=== PATIENT | male | born 1950 | race Caucasian/White ===

== ENCOUNTER 2024-09-26 17:11 | Inpatient (IN) | payer OTHER ==
[~2024-09-26] VITALS: Ht 180.3 cm; Wt 84.2 kg
[2024-09-26 18:38] LABS: pH Blood Venous 7.12 (7.34-7.37)
[2024-09-26 18:39] LABS: Base Excess Venous -18.4 mmol/L; Bicarbonate Venous 11.3 mmol/L (24.0-30.0); PCO2 Venous 33.9 mmHg (38-42)
[2024-09-26 18:41] LABS: BASOPHILS ABSOLUTE AUTO 0.03 K/mm3 (0.00-0.23); BASOPHILS PERCENT AUTO 0 % (0-2); EOSINOPHILS ABSOLUTE AUTO 0.17 K/mm3 (0.00-0.68); EOSINOPHILS PERCENT AUTO 1 % (0-6); Hematocrit 31.1 % (37.0-53.0); Hemoglobin 9.4 g/dL (13.5-17.5); IMMATURE GRAN ABSOLUTE AUTO 0.31 K/mm3 (0.00-0.10); IMMATURE GRAN PERCENT AUTO 2 % (0-1); LYMPHOCYTES ABSOLUTE AUTO 0.93 K/mm3 (0.84-5.20); LYMPHOCYTES PERCENT AUTO 4 % (21-46); MONOCYTES PERCENT AUTO 7 % (4-13); Mean Corpuscular HGB 22.4 pg (26.0-34.0); Mean Corpuscular HGB Conc 30.2 g/dL (31.5-36.5); Mean Corpuscular Volume 74 fL (80-100); Mean Platelet Volume 10.3 fL (9.1-12.4); NEUTROPHILS ABSOLUTE AUTO 18.31 K/mm3 (1.96-9.15); NEUTROPHILS PERCENT AUTO 87 % (41-73); Platelet Count 268 K/mm3 (150-400); RDW Coefficient Variation 20.4 % (11.7-14.2); RDW Standard Deviation 54.8 fL (35.1-46.3); White Blood Cell Count 21.15 K/mm3 (4.00-11.30)
[2024-09-26 18:55] LABS: Calcium, Ionized (POC) 1.07 mmol/L (1.10-1.46); Chloride (POC) 107 mmol/L (98-108); Creatinine (POC) 8.6 mg/dL (0.8-1.3); Glucose (ISTAT POC) 142 mg/dL (70-99); Hemoglobin (POC) 10.2 g/dL (13.5-17.5); Potassium (POC) 5.4 mmol/L (3.5-5.5); Sodium (POC) 135 mmol/L (135-148); Total CO2 (POC) 15 mmol/L (21-32)
[2024-09-26 19:05] LABS: CORONAVIRUS COVID-19 AG Negative (NEGATIVE); INFLUENZA A AG Negative (NEGATIVE); INFLUENZA B AG Negative (NEGATIVE)
[2024-09-26] MEDS ORDERED: Lactated Ringer's 1,000 ML IV ONE ×2 (19:20→22:30)
[2024-09-26] MEDS ORDERED: Ondansetron HCl 2 MG / ML 2ML Vial IV ONE (19:20)
[2024-09-26 19:36] LABS: Albumin, Blood 2.5 g/dL (3.4-5.0); Albumin/Globulin Ratio 0.6 (0.8-1.8); Bilirubin, Total 0.6 mg/dL (0.1-1.0); Bun/Creatinine Ratio 14.1 (12.0-20.0); Calcium, Blood 8.2 mg/dL (8.5-10.1); Creatinine, Blood 8.25 mg/dL (0.60-1.20); Globulin, Blood 4.5 g/dL (2.2-4.0); Potassium, Blood 5.7 mmol/L (3.5-5.5)
[2024-09-26] MEDS ORDERED: Insulin Regular 100 Unit/ML 1ML Dose IV ONE (20:50)
[2024-09-26] MEDS ORDERED: Dextrose 50% 50 ML Syringe IV ONE (20:50)
[2024-09-26] MEDS ORDERED: Albuterol 2.5 MG/3 ML VIAL INH SCH (20:50)
[2024-09-26] MEDS ORDERED: Sodium Bicarb 8.4% 1 MEQ/ML 50 ML Vial IV ONE (20:50)
[2024-09-26] MEDS ORDERED: Dextrose 50% 50 ML Vial IV ONE (20:55)
[2024-09-26] MEDS ORDERED: FLU VACC TS2024-25(6MOS UP)/PF 45 MCG/0.5 ML SYRINGE IM ONE (23:00)
[2024-09-26] MEDS ORDERED: Ondansetron HCl 2 MG / ML 2ML Vial IV PRN (23:00)
[2024-09-26] MEDS ORDERED: CALCIUM GLUC IN NACL, ISO-OSM 50 ML IV ONE (23:10)
[2024-09-26] MEDS ORDERED: Sodium Bicarb 8.4% Inj 100 MEQ in Sodium Chloride 0.45% 1,000 ML IV SCH (23:10)
[2024-09-27] VITALS (24 sets, daily range): BP systolic 78–126; BP diastolic 44–79
[2024-09-27] MEDS ORDERED: CefTRIAXone Sodium 1,000 MG in NS 100 ML IV SCH (01:06)
[2024-09-27] MEDS ORDERED: Albumin (Human) 25gm/100ml 100 ML IV ONE (01:10)
[2024-09-27] MEDS ORDERED: NITR.4SL SL (01:50)
[2024-09-27] MEDS ORDERED: Cefadroxil500 MG (01:51)
[2024-09-27] MEDS ORDERED: Lisinopril2.5 MG (01:52)
[2024-09-27] MEDS ORDERED: TAMS.4ER PO (01:53)
[2024-09-27] MEDS ORDERED: FINA5 PO (01:53)
[2024-09-27] MEDS ORDERED: ALBU2.5V5 (01:54)
[2024-09-27] MEDS ORDERED: CLOP75 PO (01:55)
[2024-09-27] MEDS ORDERED: ATOR80 PO (01:55)
[2024-09-27] MEDS ORDERED: METF500 PO (01:56)
[2024-09-27] MEDS ORDERED: METO25ER PO (01:56)
[2024-09-27 03:18] LABS: Bun/Creatinine Ratio 15.3 (12.0-20.0); Calcium, Blood 8.1 mg/dL (8.5-10.1); Creatinine, Blood 8.19 mg/dL (0.60-1.20)
--- NOTE | 2024-09-27 06:28 | NUR ---
SHIFT SUMMARY PT FELL ASLEEP SOON THE ADMISSION ASSESSMENT WAS COMPLETED.PT STILL SLEEPING AT THIS TIME BUT EASILY AROUSABLE.PT HAS NOT URINATED,STATES THAT HE DOES NOT FEEL THE URGE TO URINATE,DENIES SUPRAPUBIC PAIN.PT REPORTS THAT HE USUALLY KNOWS WHEN HE NEEDS TO URINATE AND STRAIGHT CATHS HIMSELF.PT STATES THAT HE WILL LET STAFF KNOW WHEN HE IS READY FOR STRAIGHT CATHERAIZATION.CONSULT TO UROLOGIST CALLED THIS MORNING.PT NPO ORDERED.PT DENIES PAIN,DENIES NEEDS.CALL LIGHT AND PT'S ITEMS WITHIN REACH.WILL REPORT TO DAYSHIFT NURSE.
[2024-09-27] MEDS ORDERED: SODIUM BICARB IV ONE (07:40)
[2024-09-27] MEDS ORDERED: Sodium Zirconium Cyclosilicate 10 GM Packet PO SCH ×2 (07:52→16:30)
[2024-09-27] MEDS ORDERED: Sodium Bicarb 8.4% Inj 150 MEQ in Dextrose 5% 1,000 ML IV SCH (08:00)
[2024-09-27 08:45] LABS: Base Excess Venous -15.8 mmol/L; PCO2 Venous 31.6 mmHg (38-42)
[2024-09-27 08:58] LABS: BASOPHILS ABSOLUTE AUTO 0.02 K/mm3 (0.00-0.23); BASOPHILS PERCENT AUTO 0 % (0-2); EOSINOPHILS ABSOLUTE AUTO 0.01 K/mm3 (0.00-0.68); EOSINOPHILS PERCENT AUTO 0 % (0-6); Hematocrit 27.2 % (37.0-53.0); Hemoglobin 8.4 g/dL (13.5-17.5); IMMATURE GRAN ABSOLUTE AUTO 0.23 K/mm3 (0.00-0.10); IMMATURE GRAN PERCENT AUTO 1 % (0-1); LYMPHOCYTES PERCENT AUTO 3 % (21-46); MONOCYTES ABSOLUTE AUTO 1.27 K/mm3 (0.16-1.47); MONOCYTES PERCENT AUTO 7 % (4-13); Mean Corpuscular HGB 22.4 pg (26.0-34.0); Mean Corpuscular HGB Conc 30.9 g/dL (31.5-36.5); Mean Corpuscular Volume 73 fL (80-100); Mean Platelet Volume 10.2 fL (9.1-12.4); NEUTROPHILS PERCENT AUTO 88 % (41-73); Platelet Count 251 K/mm3 (150-400); RDW Coefficient Variation 20.4 % (11.7-14.2); RDW Standard Deviation 54.7 fL (35.1-46.3); Red Blood Cell Count 3.75 M/mm3 (4.30-5.90); White Blood Cell Count 18.23 K/mm3 (4.00-11.30)
[2024-09-27 09:25] LABS: Albumin, Blood 2.3 g/dL (3.4-5.0); Albumin/Globulin Ratio 0.7 (0.8-1.8); Bilirubin, Total 0.5 mg/dL (0.1-1.0); Bun/Creatinine Ratio 14.8 (12.0-20.0); Calcium, Blood 7.6 mg/dL (8.5-10.1); Globulin, Blood 3.5 g/dL (2.2-4.0); Potassium, Blood 5.5 mmol/L (3.5-5.5); Total Protein, Blood 5.8 g/dL (6.4-8.2)
[2024-09-27 09:26] LABS: Creatinine, Blood 8.24 mg/dL (0.60-1.20)
[2024-09-27] MEDS ORDERED: Heparin Sodium,Porcine 5,000 UNIT/0.5 ML SDV SC SCH ×2 (10:43→16:00)
[2024-09-27] MEDS ORDERED: Enoxaparin 30 MG/0.3 ML SYR SC SCH (11:00)
[2024-09-27] MEDS ORDERED: Nicotine 21 MG PATCH TOP SCH (11:15)
[2024-09-27] MEDS ORDERED: Lactated Ringer's 1,000 ML IV SCH (12:00)
[2024-09-27 13:54] LABS: Bicarbonate Venous 14.9 mmol/L (24.0-30.0); PCO2 Venous 33.2 mmHg (38-42); pH Blood Venous 7.24 (7.34-7.37)
--- NOTE | 2024-09-27 14:30 | NUR ---
MORNING SUMMARY THE PT IS A&OX4, 1P SBA, AND MAKES THEIR NEEDS KNOWN. THE PT'S HAS BEEN AT BEDSIDE AND UPDATED ON CARE. THE PT'S CREATININE CONTINUES TO INCREASE. DR. MASSEY HAS BEEN IN CONTACT WITH DR. FRANK, COP WINDER. DR. LAGUNAS CONSULTED AND PLACED A TRIALYSIS PORT IN RIGHT IJ. DR. LAGUNAS CONFIRMED SITE WITH STAT 1V CXR. OKAY'S TOO USE. PT IS CURRENTLY AT DIALYSIS AND THE PT'S ACCOMPANIED HIM. THE PT HAS A SMALL LOOSE BM THIS SHIFT AND A SAMPLE WAS SENT TO LAB FOR GI PANEL. THE PT HAS NOT BEEN ABLE TO VOID THIS SHIFT. WHEN BLADDER SCANNED HE HAD 32 CC'S IN HIS BLADDER. DISCUSSED W/ DR. MASSEY. AT BASELINE THE PT STRAIGHT CATH'S HIMSELF AND KNOW WHEN HE NEEDS TO. HE HAS BEEN ADVANCED TO A CLEAR LIQUID DIET AND IS TOLERATING IT WELL. SEE NOTES FOR ANY UPDATES.
[2024-09-27] MEDS ORDERED: Albuterol 2.5 MG/3 ML VIAL INH PRN (15:50)
--- NOTE | 2024-09-27 15:59 | NUR ---
PT IN DIALYSIS. THIS EXTRACTOR OPERATOR HELPER RECIEVED A CALL FROM LORY NOGUEIRA RN TALKING ABOUT NEPHROSTOMY PLACEMENT. THIS RN WAS UNAWARE AND WENT TO TALK TO THE PT IN DIALYSIS. WHEN IN THE ROOM DR. ALBA CAME IN AND DISCUSSED THE NEED FOR A NEPHROSTOMY TUBE D/T KIDNEY STONES. CONSENT WAS OBTAINED FROM THE PT AND HIS . THEY WILL GRAB THE PT FROM DIALYSIS FOR PRROCEDURE.
[2024-09-27] MEDS ORDERED: NS 250 ML IV ONE (16:18)
[2024-09-27] MEDS ORDERED: Midazolam HCl 1MG / ML 2ML Vial ONE (16:22)
[2024-09-27] MEDS ORDERED: NS 1,000 ML IV ONE (16:23)
[2024-09-27] MEDS ORDERED: FentaNYL Citrate 50 MCG/ML 2 ML Injection ONE (16:23)
--- NOTE | 2024-09-27 17:35 | NUR ---
PT GOT BACK POST L. NEPHROSTOMY TUBE PLACEMENT. THE PT IS A&OX2-3, HE THOUGHT THE YEAR WAS 1984 BUT KNEW IT WAS SEPTEMBER AND THAT JONAS WAS IN OFFICE. HE DOES C/O SOME VISUAL HALLUCINATIONS. HE IS SAYING HE SEEINS RED WRITING IN HIS VISION. DR. MASSEY AND DR. CALLES AWARE. DR. CALLES DOES WANT THE 2100 ANTIBIOTICS GIVEN NOW. VS STABLE. RED PURULENT DRAINAGE NOTED IN DRAINGAGE BAG FROM NEPHROSTOMY.
--- NOTE | 2024-09-27 18:26 | NUR ---
PT IS NO LONGER HALLUCINATING. HE IS PALE IN COLOR, SHIVERING, AND C/O SOB. THE RN CALLED DR. MARINO AND SHE D/C'D THE FLUIDS. SHE IS GOING TO ADD MORE ANTIBIOTICS. ALSO, DR. MARINO STATED IF THE PT WORSENS TO DO A 1V CHEST XRAY, AND IF OXYGEN BECOMES REQUIRED TO TRY TO BIPAP IN CASE OF FLUID OVER LOAD. SEE NOTES FOR UPDATES.
[2024-09-27 18:38] LABS: Base Excess Venous -7.9 mmol/L; Bicarbonate Venous 18.3 mmol/L (24.0-30.0); pH Blood Venous 7.31 (7.34-7.37)
[2024-09-27] MEDS ORDERED: Acetaminophen 325 MG TABLET PO PRN (18:40)
[2024-09-27 18:46] LABS: Hematocrit 28.6 % (37.0-53.0); Hemoglobin 8.9 g/dL (13.5-17.5); Mean Corpuscular HGB 22.1 pg (26.0-34.0); Mean Corpuscular HGB Conc 31.1 g/dL (31.5-36.5); Mean Corpuscular Volume 71 fL (80-100); Mean Platelet Volume 10.1 fL (9.1-12.4); Platelet Count 249 K/mm3 (150-400); RDW Standard Deviation 51.7 fL (35.1-46.3); Red Blood Cell Count 4.02 M/mm3 (4.30-5.90); White Blood Cell Count 4.41 K/mm3 (4.00-11.30)
[2024-09-27] MEDS ORDERED: Meropenem 500 MG in NS 100 ML IV SCH (19:00)
[2024-09-27 19:09] LABS: BAND PERCENT MAN 9 % (0-8); BASOPHILS ABSOLUTE MAN 0.04 K/mm3 (0.00-0.23); BASOPHILS PERCENT MAN 1 % (0-2); EOSINOPHILS ABSOLUTE MAN 0.04 K/mm3 (0.00-0.68); EOSINOPHILS PERCENT MAN 1 % (0-6); LYMPHOCYTES ABSOLUTE MAN 0.57 K/mm3 (0.84-5.20); LYMPHOCYTES PERCENT MAN 13 % (21-46); MONOCYTES ABSOLUTE MAN 0.04 K/mm3 (0.16-1.47); MONOCYTES PERCENT MAN 1 % (4-13); MYELOCYTE ABSOLUTE MAN 0.04 K/mm3 (0.00-0.00); MYELOCYTE PERCENT MAN 1 % (0-0); NEUTROPHILS ABSOLUTE MAN 3.66 K/mm3 (1.96-9.15); SEG NEUTROPHILS PERCENT MAN 74 % (41-73); TOTAL CELLS COUNTED 100
[2024-09-27 19:11] LABS: Albumin, Blood 2.5 g/dL (3.4-5.0); Anion Gap 17 mmol/L (3-11); Blood Urea Nitrogen 88 mg/dL (8-24); Bun/Creatinine Ratio 14.9 (12.0-20.0); CO2, Blood 22 mmol/L (21-32); Calcium, Blood 7.5 mg/dL (8.5-10.1); Chloride, Blood 102 mmol/L (98-108); Glomerular Filtration Rate 9 (60-); Glucose, Blood 98 mg/dL (70-99); Phosphorus, Blood 5.4 mg/dL (2.5-4.9); Potassium, Blood 4.1 mmol/L (3.5-5.5); Sodium, Blood 137 mmol/L (136-145)
[2024-09-27 21:13] LABS: Base Excess Venous -5.2 mmol/L; Bicarbonate Venous 20.6 mmol/L (24.0-30.0); PCO2 Venous 31.3 mmHg (38-42); pH Blood Venous 7.41 (7.34-7.37)
--- NOTE | 2024-09-27 21:40 | NUR ---
ASSUMPTION OF CARE ASSUMED PT'S CARE AT 1900,[facility]EDSIDE [facility].PT LETHARGIC,OPENS EYES TO VOICE.PLAN OF CARE REVIEWED.PT'S OXYGEN SATURATION 87% ON RA,PLACED ON 2L VIA NASAL CANNULA.RESPIRATORY THERAPIST CAME TO THE ROOM, EVALUATED PT AND OFFERED TO PLACE PT ON A BIPAP BUT PT REFUSED.RT INCREASED THE OXYGEN FLOW RATE TO 3L VIA NC.OXYGEN SATURATION 94%.VSS,PT DENIES PAIN,DENIES SOB,DENIES NEEDS.NEPHROSTOMY TUBE IN PLACE DRAINING MODERATE AMOUNT OF SEROSANGUINEOUS DRAINAGE.CALL LIGHT AND PTS ITEMS WITHIN REACH.WILL CONTINUE TO MONITOR.
--- NOTE | 2024-09-27 22:48 | NUR ---
CARE NOTE RESIDENT NOTIFIED AT 2211 OF PTS BP DROPPING DOWN TO 78/44 (56).PT IS MORE ALERT THAN HE WAS AT THE BEGINNING OF THE SHIFT.MD STATES THAT HE WILL COME TO SEE PT AT BEDSIDE.
[2024-09-27] MEDS ORDERED: Midodrine 2.5 MG Tab PO SCH (23:50)
[2024-09-28] VITALS (27 sets, daily range): BP systolic 80–122; BP diastolic 45–85
[2024-09-28] MEDS ORDERED: Heparin Sodium 5000 Units/ML 1ML MDV SC SCH (00:31)
[2024-09-28 04:57] LABS: BASOPHILS ABSOLUTE AUTO 0.02 K/mm3 (0.00-0.23); BASOPHILS PERCENT AUTO 0 % (0-2); EOSINOPHILS ABSOLUTE AUTO 0.02 K/mm3 (0.00-0.68); EOSINOPHILS PERCENT AUTO 0 % (0-6); Hematocrit 24.1 % (37.0-53.0); Hemoglobin 7.8 g/dL (13.5-17.5); IMMATURE GRAN ABSOLUTE AUTO 0.13 K/mm3 (0.00-0.10); IMMATURE GRAN PERCENT AUTO 1 % (0-1); LYMPHOCYTES PERCENT AUTO 4 % (21-46); MONOCYTES ABSOLUTE AUTO 1.02 K/mm3 (0.16-1.47); MONOCYTES PERCENT AUTO 6 % (4-13); Mean Corpuscular HGB 22.2 pg (26.0-34.0); Mean Corpuscular HGB Conc 32.4 g/dL (31.5-36.5); Mean Corpuscular Volume 69 fL (80-100); NEUTROPHILS ABSOLUTE AUTO 15.03 K/mm3 (1.96-9.15); NEUTROPHILS PERCENT AUTO 89 % (41-73); Platelet Count 211 K/mm3 (150-400); RDW Coefficient Variation 19.5 % (11.7-14.2); RDW Standard Deviation 48.9 fL (35.1-46.3); Red Blood Cell Count 3.52 M/mm3 (4.30-5.90); White Blood Cell Count 16.82 K/mm3 (4.00-11.30)
[2024-09-28 05:23] LABS: Albumin/Globulin Ratio 0.6 (0.8-1.8); Bilirubin, Total 0.6 mg/dL (0.1-1.0); Bun/Creatinine Ratio 14.8 (12.0-20.0); Calcium, Blood 7.2 mg/dL (8.5-10.1); Creatinine, Blood 6.94 mg/dL (0.60-1.20); Globulin, Blood 3.3 g/dL (2.2-4.0); Magnesium, Blood 2.1 mg/dL (1.6-2.4); Potassium, Blood 4.3 mmol/L (3.5-5.5); Total Protein, Blood 5.3 g/dL (6.4-8.2)
--- NOTE | 2024-09-28 06:04 | NUR ---
SHIFT SUMMARY PT AWAKE SITTING AT THE EDGE OF THE BED.PT HAD EPISODES OF LOW BP'S OVERNIGHT (SEE CARE NOTES).BP IMPROVED WITH MIDRODINE 2.5MG PO.PT'S MENTATION IMPROVED THROUGHOUT THE NIGHT.HE ALERT AND ORIENTATED X4 THIS MORNING.PT REQUIRED 2-4L OF OXYGEN VIA NASAL CANNULA WHILE SLEEPING.OXYGEN SATURATION DROPPED DOWN TO 86% ON RA WHILE PT WAS SLEEPING.OXYGEN SATURATION >91% ON RA WHILE PT AWAKE.PT SNORES IN WHILE SLEEPING.NEPHROSTOMY TUBE IN PLACE AND PATENT,DRAINING MODERATE AMOUNT OF BLOOD TINGED DRAINAGE.PT DENIES PAIN,DENIES NEEDS.CALL LIGHT AND PT'S ITEMS WITHIN REACH.WILL CONTINUE TO MONITOR.
[2024-09-28] MEDS ORDERED: Albumin (Human) 25gm/100ml 100 ML IV PRN (08:25)
[2024-09-28] MEDS ORDERED: Atorvastatin 40 MG Tab PO SCH (09:00)
[2024-09-28] MEDS ORDERED: Finasteride 5 MG Tab PO SCH (09:00)
[2024-09-28] MEDS ORDERED: Metoprolol Succinate 25 MG TABCR PO SCH (09:00)
[2024-09-28] MEDS ORDERED: Clopidogrel Bisulfate 75 MG Tab PO SCH (09:00)
[2024-09-28] MEDS ORDERED: Tamsulosin HCl 0.4 MG Cap PO SCH (09:00)
[2024-09-28] MEDS ORDERED: Midodrine 2.5 MG Tab PO SCH (09:00)
[2024-09-28] MEDS ORDERED: Empagliflozin 10 MG TAB PO SCH (09:00)
[2024-09-28] MEDS ORDERED: Sodium Zirconium Cyclosilicate 10 GM Packet PO ONE (14:15)
--- NOTE | 2024-09-28 17:38 | NUR ---
SHIFT SUMMARY THE PT IS A&OX3-4, CALLS APPROPRAITELY, AND MAKES HIS NEEDS KNOWN. THE PT CAN BE FORGETFUL, BUT DOES CALL APPROPRAITELY. ABOUT 1600 THE PT REPORTED SEEING RED WRITING IN HIS VISION, WHICH THE PT PRESENT WITH 2/. HE STATED THAT IT COMES AND GOES. PERRLA. THE PT IS A 1P SBA W/ FWW FOR TX. HE WAS STILL UNABLE TO VOID BUT HAD 70CC OR RED PURULENT DRAINAGE FROM HIS LEFT NEPHROSTOMY. INSERTION SITE REMAIN INTACT. BM THIS SHIFT BUT A STOOL SAMPLE WAS NOT OBTAINED. PT HAD DIALYSIS THIS MORNING. NO ACUTE EVENTS. SEE NOTES FOR UPDATES.
[2024-09-28] MEDS ORDERED: Meropenem 1,000 MG in NS 100 ML IV SCH (21:00)
[2024-09-28 22:01] LABS: Campylobacter Sp Not Detected (NOT DETECT)
[2024-09-28 22:02] LABS: Adenovirus F 40/41 Not Detected (NOT DETECT); Astrovirus Not Detected (NOT DETECT); Cryptosporidium Not Detected (NOT DETECT); Cyclospora Cayetanensis Not Detected (NOT DETECT); E. Coli O157 Not Detected (NOT DETECT); Entamoeba Histolytica Not Detected (NOT DETECT); Enteroaggregative E. coli-EAEC Not Detected (NOT DETECT); Enteropathogenic E. coli-EPEC Not Detected (NOT DETECT); Enterotoxigenic E. coli-ETEC Not Detected (NOT DETECT); Giardia Lamblia Not Detected (NOT DETECT); Norovirus GI/GII Not Detected (NOT DETECT); Plesiomonas Shigelloides Not Detected (NOT DETECT); Rotavirus A Not Detected (NOT DETECT); Salmonella Sp Not Detected (NOT DETECT); Sapovirus Not Detected (NOT DETECT); Shiga Toxin-prod E. coli-STEC Not Detected (NOT DETECT); Shigella/Enteroin E. coli-EIEC Not Detected (NOT DETECT); Vibrio Cholerae Not Detected (NOT DETECT); Vibrio Sp Not Detected (NOT DETECT); Yersinia Enterocolitica Not Detected (NOT DETECT)
[2024-09-29] VITALS (7 sets, daily range): BP systolic 96–136; BP diastolic 62–76
[2024-09-29 04:41] LABS: BASOPHILS ABSOLUTE AUTO 0.02 K/mm3 (0.00-0.23); BASOPHILS PERCENT AUTO 0 % (0-2); EOSINOPHILS ABSOLUTE AUTO 0.03 K/mm3 (0.00-0.68); EOSINOPHILS PERCENT AUTO 0 % (0-6); Hematocrit 23.5 % (37.0-53.0); Hemoglobin 7.6 g/dL (13.5-17.5); IMMATURE GRAN ABSOLUTE AUTO 0.11 K/mm3 (0.00-0.10); IMMATURE GRAN PERCENT AUTO 1 % (0-1); LYMPHOCYTES ABSOLUTE AUTO 0.49 K/mm3 (0.84-5.20); LYMPHOCYTES PERCENT AUTO 5 % (21-46); MONOCYTES ABSOLUTE AUTO 1.05 K/mm3 (0.16-1.47); MONOCYTES PERCENT AUTO 11 % (4-13); Mean Corpuscular HGB 22.1 pg (26.0-34.0); Mean Corpuscular HGB Conc 32.3 g/dL (31.5-36.5); Mean Corpuscular Volume 68 fL (80-100); NEUTROPHILS ABSOLUTE AUTO 7.86 K/mm3 (1.96-9.15); NEUTROPHILS PERCENT AUTO 82 % (41-73); Platelet Count 168 K/mm3 (150-400); RDW Coefficient Variation 18.9 % (11.7-14.2); RDW Standard Deviation 46.7 fL (35.1-46.3); Red Blood Cell Count 3.44 M/mm3 (4.30-5.90); White Blood Cell Count 9.56 K/mm3 (4.00-11.30)
[2024-09-29 04:43] LABS: Mean Platelet Volume 10.9 fL (9.1-12.4)
--- NOTE | 2024-09-29 04:45 | NUR ---
NOC SHIFT SUMMARY NO ACUTE EVENTS OVERNIGHT. PT SLEPT FOR MAJORITY OF SHIFT. PT ALERT AND COOPERATIVE W/ CARE. PT ON 1L, MAINTAINING SATS>95%. SINUS VIA LIEUTENANT/DEPUTY W/ PVCS. BP STABLE W/ MAPS>65. PT DID NOT URINATE DURING SHIFT, BLADDER SCAN PERFROMED 158ML. PT HAD LIQUID BM, SAMPLE COLLECTED AND SENT TO LAB- PT POSITIVE FOR CDIFF, PLACED IN CONTACT PRECAUTION ISOLATION. PT AFEBRILE. L. NEPHROSTOMY TUBE IRRIGATED W/ 10ML STERILE SALINE. CONTINUES TO DRAIN PURULENT FLUID W/ SMALL BLOOD CLOTS- PATENT. PT NPO AFTER MIDNIGHT FOR UPCOMING PROCEDURE. CALL LIGHT W/IN REACH. PLAN OF CARE ONGOING.
[2024-09-29 04:58] LABS: Albumin, Blood 2.2 g/dL (3.4-5.0); Anion Gap 12 mmol/L (3-11); Blood Urea Nitrogen 68 mg/dL (8-24); Bun/Creatinine Ratio 13.3 (12.0-20.0); CO2, Blood 28 mmol/L (21-32); Calcium, Blood 7.5 mg/dL (8.5-10.1); Chloride, Blood 101 mmol/L (98-108); Creatinine, Blood 5.13 mg/dL (0.60-1.20); Glomerular Filtration Rate 11 (60-); Glucose, Blood 165 mg/dL (70-99); Potassium, Blood 3.2 mmol/L (3.5-5.5); Sodium, Blood 138 mmol/L (136-145)
[2024-09-29] MEDS ORDERED: Potassium Chloride 40 MEQ in NS 250 ML IV ONE (05:30)
[2024-09-29] MEDS ORDERED: Nicotine Polacrilex 2 MG Gum PO PRN (08:45)
[2024-09-29] MEDS ORDERED: Metoprolol Succinate 25 MG TABCR PO SCH (09:00)
--- NOTE | 2024-09-29 11:45 | NUR ---
DR. FRANK MODEL MAKING SUPERVISOR AT BEDSIDE. UPDATING PT AND HIS DEEP.
[2024-09-29] MEDS ORDERED: Vancomycin HCl 125 MG Cap PO SCH (12:00)
[2024-09-29] MEDS ORDERED: Sod Ferric Gluc Complx/Sucrose 125 MG in NS 100 ML IV SCH (13:00)
[2024-09-29 13:43] LABS: Percent Saturation 17.8 % (20.0-50.0)
[2024-09-29] MEDS ORDERED: Darbepoetin Alfa in Polysorbat 25 MCG/0.42 ML Syringe SC SCH (16:00)
--- NOTE | 2024-09-29 16:02 | NUR ---
CHG BATH COMPLETED BY ALYCE FERRARI. LEFT NEPHROSTOMY TUBE IRRIGATED W/ 10CC SALINE PER ORDER BY THIS RN.
[2024-09-29 17:27] LABS: HEPATITIS B SURFACE ANTIBODY <3.10 IU/L
--- NOTE | 2024-09-29 17:45 | NUR ---
SHIFT SUMMARY THE PT IS A&OX3-4, HE HAS BEEN COOPERATIVE, AND CALLS FOR HIS NEEDS. THE PT IS A 1P SBA W/ FWW. HE HAS BEEN ON RA MAJORITY OF THE DAY AND UP IN THE RECLINER. SP02 >93%, AND HE DENIES ANY SOB. ON TELE HE IS SR 70'S W/ BBB AND PVC'S. PT DENIES ANY ANGINA OR CHEST PRESSURE. HE HAS MULTIPLE LOOSE STOOLS, AND A GUAIC OCCULT WAS SENT TO LAB. RESULTS PENDING. NO VOID THIS SHIFT. LEFT NEPHROSTOMY DRAINING TO GRAVITY, IRRIGATED PER ORDER THIS SHIFT. PT HAD A CHG BATH THIS SHIFT. PLAN FOR NPO AT 0000 FOR DIALYSIS CATH PLACEMENT WITH DR. ALBA. DR. ALBA WAS AWARE 09/27 AND NOTED TO LEAVE PT NPO AT 0000 TODAY. HE WAS LEFT A MESSAGE TO LET HIM KNOW A NEW PORT IS STILL INDICATED. PLAN FOR DIALYSIS 09/30. PT'S HAS BEEN AT BEDSIDE AND UPDATED ON CARE. SEE NOTES FOR ANY UPDATES.
[2024-09-30] VITALS (22 sets, daily range): BP systolic 111–134; BP diastolic 53–85
[2024-09-30 00:45] LABS: Stool Occult Blood Guaiac 1 Pos (Neg)
[2024-09-30 04:53] LABS: BASOPHILS ABSOLUTE AUTO 0.03 K/mm3 (0.00-0.23); BASOPHILS PERCENT AUTO 0 % (0-2); EOSINOPHILS ABSOLUTE AUTO 0.09 K/mm3 (0.00-0.68); EOSINOPHILS PERCENT AUTO 1 % (0-6); Hematocrit 23.9 % (37.0-53.0); Hemoglobin 7.6 g/dL (13.5-17.5); IMMATURE GRAN ABSOLUTE AUTO 0.29 K/mm3 (0.00-0.10); IMMATURE GRAN PERCENT AUTO 3 % (0-1); LYMPHOCYTES ABSOLUTE AUTO 0.64 K/mm3 (0.84-5.20); LYMPHOCYTES PERCENT AUTO 6 % (21-46); MONOCYTES ABSOLUTE AUTO 0.91 K/mm3 (0.16-1.47); MONOCYTES PERCENT AUTO 8 % (4-13); Mean Corpuscular HGB Conc 31.8 g/dL (31.5-36.5); Mean Corpuscular Volume 69 fL (80-100); NEUTROPHILS PERCENT AUTO 82 % (41-73); Platelet Count 164 K/mm3 (150-400); RDW Coefficient Variation 18.9 % (11.7-14.2); RDW Standard Deviation 47.7 fL (35.1-46.3); Red Blood Cell Count 3.46 M/mm3 (4.30-5.90); White Blood Cell Count 10.96 K/mm3 (4.00-11.30)
[2024-09-30 04:56] LABS: Mean Platelet Volume 10.7 fL (9.1-12.4)
[2024-09-30 05:09] LABS: Anion Gap 12 mmol/L (3-11); Blood Urea Nitrogen 89 mg/dL (8-24); Bun/Creatinine Ratio 13.1 (12.0-20.0); CO2, Blood 27 mmol/L (21-32); Calcium, Blood 7.6 mg/dL (8.5-10.1); Chloride, Blood 100 mmol/L (98-108); Creatinine, Blood 6.78 mg/dL (0.60-1.20); Glomerular Filtration Rate 8 (60-); Glucose, Blood 150 mg/dL (70-99); Phosphorus, Blood 4.5 mg/dL (2.5-4.9); Potassium, Blood 3.4 mmol/L (3.5-5.5); Sodium, Blood 136 mmol/L (136-145)
--- NOTE | 2024-09-30 07:24 | NUR ---
SHIFT SUMMARY PT IS A&OX4, PLEASANT AND COOPERATIVE WITH CARE. VSS ON RA, PT PLACED ON 2L NC WHILE ASLEEP FOR SATTING AT 88% ON RA. HR IS SR 60-70'S WITH PVCS. PT DID HAVE A 5 BEAT RUN OF V-TACH AT 0200, ASYMPTOMATIC PT SLEEPING. DENIES PAIN. L NEPHROSTOMY TUBE DRAINING BLOODY URINE TO GRAVITY. CHG BATH COMPLETED THIS SHIFT. TOLERATING A CONS CARB DIET, NPO AFTER MN FOR A PROCEDURE THIS MORNING. X1 ASSIST WITH FWW TO BR. DID NOT VOID, HAD 1 LOOSE BM THIS SHIFT. BED IN LOWEST POSITION, CALL LIGHT WITHIN REACH. CALLS APPROPRIATELY AND IS ABLE TO ADVOCATE NEEDS EFFECTIVELY. ENTERIC PRECAUTIONS MAINTAINED FOR POSITIVE C-DIFF.
[2024-09-30] MEDS ORDERED: Lactobacil 2-S.Thermo-Bifido 1 1 Cap PO SCH (09:00)
[2024-09-30 10:52] LABS: HEPATITIS A ANTIBODY, IGM Negative (Negative); HEPATITIS B CORE ANTIBODY, IGM Negative (Negative); HEPATITIS B SURFACE ANTIGEN Negative (Negative); HEPATITIS C AB CIA INTERP Negative (Negative); HEPATITIS C ANTIBODY CIA INDEX 0.07 IV
--- NOTE | 2024-09-30 13:41 | NUR ---
PT TP DIALYSIS: PT TO DIALYSIS AT APPROX 0930. PT STILL REMAINS IN DIALYSIS AT THIS TIME. PT RECIEVING BLOOD TRANSFUSION IN DIALYSIS AT THIS TIME.
--- NOTE | 2024-09-30 17:43 | NUR ---
SHIFT SUMMARY: NEURO: NO ACUTE CHANGES CARDIAC: NO ACUTE CHANGES RESP: NO ACUTE CHANGES GI/: L NEPRO REMAINS IN PLACE. DRAINING RED TINGED URINE. NO REGULAR URINARY OUTPUT. PT HAS NOT HAD A BOWEL MOVEMENT TODAY. PT WENT TO DIALYSIS THIS AM. 800ML WAS TAKEN OFF. PT RECIEVED 1 UNIT OF BLOOD WHILE IN DIALYSIS. PERMACATH PLACEMENT WAS RESCHEDUELED TO TOMORROW AM. PT WILL BE NPO AFTER MIDNIGHT. NO OTHER R IJ TRIALYSIS CATH REMAINS IN PLACE. NO OTHER SIGNIFICANT EVENTS HAPPENED DURING THIS SHIFT. WILL CONTINUE TO CARE FOR PT TILL END OF SHIFT.
[2024-09-30] MEDS ORDERED: CefTRIAXone Sodium 1,000 MG in NS 100 ML IV SCH (21:00)
[2024-10-01 00:32] VITALS: BP 108/69
--- NOTE | 2024-10-01 02:07 | NUR ---
UPDATE CALLED RESIDENT TO CONFIRM HIS MIDNIGHT SQ HEPARIN INJECTION TO BE GIVEN.
[2024-10-01 04:14] VITALS: BP 113/65
[2024-10-01 04:31] LABS: BASOPHILS ABSOLUTE AUTO 0.03 K/mm3 (0.00-0.23); BASOPHILS PERCENT AUTO 0 % (0-2); EOSINOPHILS ABSOLUTE AUTO 0.09 K/mm3 (0.00-0.68); EOSINOPHILS PERCENT AUTO 1 % (0-6); Hematocrit 26.4 % (37.0-53.0); Hemoglobin 8.5 g/dL (13.5-17.5); IMMATURE GRAN ABSOLUTE AUTO 0.31 K/mm3 (0.00-0.10); IMMATURE GRAN PERCENT AUTO 4 % (0-1); LYMPHOCYTES ABSOLUTE AUTO 0.69 K/mm3 (0.84-5.20); LYMPHOCYTES PERCENT AUTO 8 % (21-46); MONOCYTES ABSOLUTE AUTO 0.74 K/mm3 (0.16-1.47); MONOCYTES PERCENT AUTO 8 % (4-13); Mean Corpuscular HGB 22.8 pg (26.0-34.0); Mean Corpuscular HGB Conc 32.2 g/dL (31.5-36.5); Mean Corpuscular Volume 71 fL (80-100); Mean Platelet Volume 10.7 fL (9.1-12.4); NEUTROPHILS ABSOLUTE AUTO 7.09 K/mm3 (1.96-9.15); NEUTROPHILS PERCENT AUTO 79 % (41-73); Platelet Count 174 K/mm3 (150-400); RDW Coefficient Variation 19.2 % (11.7-14.2); RDW Standard Deviation 49.3 fL (35.1-46.3); Red Blood Cell Count 3.72 M/mm3 (4.30-5.90); White Blood Cell Count 8.95 K/mm3 (4.00-11.30)
[2024-10-01 04:50] LABS: Albumin, Blood 1.9 g/dL (3.4-5.0); Anion Gap 12 mmol/L (3-11); Blood Urea Nitrogen 53 mg/dL (8-24); Bun/Creatinine Ratio 10.2 (12.0-20.0); CO2, Blood 29 mmol/L (21-32); Calcium, Blood 7.9 mg/dL (8.5-10.1); Chloride, Blood 101 mmol/L (98-108); Creatinine, Blood 5.22 mg/dL (0.60-1.20); Glomerular Filtration Rate 11 (60-); Glucose, Blood 133 mg/dL (70-99); Phosphorus, Blood 3.9 mg/dL (2.5-4.9); Potassium, Blood 3.5 mmol/L (3.5-5.5); Sodium, Blood 138 mmol/L (136-145)
--- NOTE | 2024-10-01 06:50 | NUR ---
SHIFT SUMMARY: PT IS A&OX4, PLEASANT AND COOPERATIVE OF CARE. VSS ON RA, 2L NC WHILE ASLEEP. HR IS SR 60-70'S WITH PVC'S. DENIES PAIN. L NEPHROSTOMY TUBE DRAINED 250 ML OF WATERMELON COLORED URINE TO GRAVITY. TOLERATING A CONS CARB DIET, NPO AFTER MN FOR A PROCEDURE THIS MORNING. X1 ASSIST WITH FWW TO BR. DID NOT VOID, HAD 1 LOOSE BM THIS SHIFT. BED IN LOWEST POSITION, CALL LIGHT WITHIN REACH. CALLS APPROPRIATELY AND IS ABLE TO ADVOCATE NEEDS EFFECTIVELY. ENTERIC PRECAUTIONS MAINTAINED FOR POSITIVE C-DIFF.
--- NOTE | 2024-10-01 08:13 | NUR ---
call placed to dr velásquez regarding nephrology consult. dialysis held for today and labs ordered for tomorrow
[2024-10-01 08:22] VITALS: BP 119/72
[2024-10-01 12:30] VITALS: BP 97/72
[2024-10-01 16:03] VITALS: BP 122/62
[2024-10-01] MEDS ORDERED: Midazolam HCl 1MG / ML 2ML Vial ONE (16:27)
[2024-10-01] MEDS ORDERED: Heparin Sodium 1000 Units/ML 10ML MDV ONE (16:28)
[2024-10-01] MEDS ORDERED: NS 1,000 ML IV ONE (16:28)
[2024-10-01] MEDS ORDERED: FentaNYL Citrate 50 MCG/ML 2 ML Injection ONE (16:28)
[2024-10-01] MEDS ORDERED: NS 250 ML IV ONE (16:30)
[2024-10-01] MEDS ORDERED: CeFAZolin Sodium 2,000 MG VIAL ONE (16:40)
[2024-10-01] MEDS ORDERED: NS 100 ML IV ONE (16:41)
--- NOTE | 2024-10-01 17:48 | NUR ---
SHIFT SUMMARY PT A&OX4 AND ANSWERS QUESTIONS APPROPRIATELY. PT NPO FOR HEMODIALYSIS CATH PLACEMENT. PT TAKEN DOWN AROUND 1630 FOR PROCEDURE. PROCEDURE SUCCESSFUL, NO ADVERSE REACTIONS. PT RECEIVED SCHEDEULED MEDICATION WITH NO ADVERSE EFFECTS. PT VSS, NO COMPLAINTS OF CP/PRESSURE OR SOB. PT SPENT MOST OF SHIFT SITTING IN HIS CHAIR. NO ACUTE EVENTS AT THIS TIME. PT REPOSITIONED INDEPENDENTLY. FALL PRECAUTIONS IN PLACE. CALL LIGHT IN REACH.
[2024-10-01 20:15] VITALS: BP 111/72
[2024-10-02] VITALS (18 sets, daily range): BP systolic 105–134; BP diastolic 40–92
[2024-10-02 05:24] LABS: Hematocrit 27.8 % (37.0-53.0); Hemoglobin 8.8 g/dL (13.5-17.5)
[2024-10-02 05:57] LABS: Albumin, Blood 2.1 g/dL (3.4-5.0); Anion Gap 11 mmol/L (3-11); Blood Urea Nitrogen 70 mg/dL (8-24); Bun/Creatinine Ratio 10.3 (12.0-20.0); CO2, Blood 29 mmol/L (21-32); Calcium, Blood 7.8 mg/dL (8.5-10.1); Chloride, Blood 101 mmol/L (98-108); Creatinine, Blood 6.78 mg/dL (0.60-1.20); Glomerular Filtration Rate 8 (60-); Glucose, Blood 141 mg/dL (70-99); Magnesium, Blood 2.4 mg/dL (1.6-2.4); Phosphorus, Blood 4.7 mg/dL (2.5-4.9); Potassium, Blood 3.4 mmol/L (3.5-5.5); Sodium, Blood 138 mmol/L (136-145)
--- NOTE | 2024-10-02 06:54 | NUR ---
SHIFT SUMMARY: PT IS A&OX4, PLEASANT AND COOPERATIVE OF CARE. VSS ON RA, 2L NC WHILE ASLEEP. HR IS SR 60-70'S WITH PVCS. DENIES PAIN. L NEPHROSTOMY TUBE DRAINED 400 ML OF WATERMELON COLORED URINE TO GRAVITY. TOLERATING A CONS CARB DIET, GOOD APPETITE. X1 ASSIST WITH FWW TO BR. DID NOT VOID, HAD 1 LOOSE BM THIS SHIFT. BED IN LOWEST POSITION, CALL LIGHT WITHIN REACH. CALLS APPROPRIATELY AND IS ABLE TO ADVOCATE NEEDS EFFECTIVELY. ENTERIC PRECAUTIONS MAINTAINED FOR POSITIVE C-DIFF.
[2024-10-02] MEDS ORDERED: Potassium Chloride 10 Meq Tablet SA PO ONE (07:15)
--- NOTE | 2024-10-02 15:15 | NUR ---
DR. DUMONT CALLED ABOUT INCREASED PROLONGED QTC. NO NEW ORDERS AT THIS TIME.
[2024-10-02] MEDS ORDERED: Midodrine 2.5 MG Tab PO PRN (15:20)
--- NOTE | 2024-10-02 16:43 | NUR ---
SHIFT SUMMARY THE PT IS A&OX4, BUT CAN BE FORGETFUL WITH NEW INFORMATION REGAURDING HIS NEW ILLNESS. PT HAS BEEN AT BEDSIDE AND UPDATED ON INFORMATION. PT HAD DIALYSIS THIS MORNING PER DR. QUIÑONES. AT THE START OF THE SHIFT HE WAS ON 2LNC AND HAS BEEN ON RA THE ENTIRE SHIFT. SP02 >93% AND HE DENIES ANY SOB. ON TELE HE HAS BEEN SR W/ BIGEM PVC'S, BBB, AND PROLONGED QTC OF 0.56. PROVIDERS AWARE. BP STABLE. NO COMPLAINTS OF ANY ANGINA OR CHEST PRESSURE. PT IS MEDICAL STATUS. NO ROOM ASSIGNMENT AT THIS TIME. LEFT NEPHROSTOMY TUBE IRRIGATED PER ORDER. DRESSING CHANGED THIS SHIFT. C/D/I. NO ACUTE EVENTS. SEE NOTES FOR ANY UPDATES.
[2024-10-03 03:20] VITALS: BP 110/68
--- NOTE | 2024-10-03 03:56 | NUR ---
report given to susana for assumption of care
[2024-10-03 04:27] VITALS: BP 124/77
--- NOTE | 2024-10-03 06:15 | NUR ---
PT TRANSFERRED FROM PCU, VS WNL, LEFT UROSTOMY WITH CLEAR PINK TINGED URINE. PT STATES ONLY X1 BM TODAY. RT. HD CATH CAPPED, HD ON 10/02 WITH 1000ML REMOVED. TELE NSR WITH PVC'S ON RA, CBG 170 NO COVERAGE. DENIES PAIN.
[2024-10-03 06:21] LABS: BASOPHILS ABSOLUTE AUTO 0.02 K/mm3 (0.00-0.23); BASOPHILS PERCENT AUTO 0 % (0-2); EOSINOPHILS ABSOLUTE AUTO 0.18 K/mm3 (0.00-0.68); EOSINOPHILS PERCENT AUTO 2 % (0-6); Hematocrit 28.3 % (37.0-53.0); IMMATURE GRAN ABSOLUTE AUTO 0.21 K/mm3 (0.00-0.10); IMMATURE GRAN PERCENT AUTO 2 % (0-1); LYMPHOCYTES ABSOLUTE AUTO 0.74 K/mm3 (0.84-5.20); LYMPHOCYTES PERCENT AUTO 8 % (21-46); MONOCYTES ABSOLUTE AUTO 0.76 K/mm3 (0.16-1.47); MONOCYTES PERCENT AUTO 8 % (4-13); Mean Corpuscular HGB 23.4 pg (26.0-34.0); Mean Corpuscular HGB Conc 31.8 g/dL (31.5-36.5); Mean Corpuscular Volume 74 fL (80-100); Mean Platelet Volume 10.4 fL (9.1-12.4); NEUTROPHILS ABSOLUTE AUTO 7.93 K/mm3 (1.96-9.15); NEUTROPHILS PERCENT AUTO 81 % (41-73); Platelet Count 256 K/mm3 (150-400); RDW Coefficient Variation 19.5 % (11.7-14.2); RDW Standard Deviation 50.6 fL (35.1-46.3); Red Blood Cell Count 3.84 M/mm3 (4.30-5.90); White Blood Cell Count 9.84 K/mm3 (4.00-11.30)
[2024-10-03 06:42] LABS: Albumin, Blood 2.1 g/dL (3.4-5.0); Anion Gap 12 mmol/L (3-11); Blood Urea Nitrogen 49 mg/dL (8-24); CO2, Blood 28 mmol/L (21-32); Calcium, Blood 7.7 mg/dL (8.5-10.1); Chloride, Blood 102 mmol/L (98-108); Creatinine, Blood 6.09 mg/dL (0.60-1.20); Glomerular Filtration Rate 9 (60-); Glucose, Blood 141 mg/dL (70-99); Potassium, Blood 3.4 mmol/L (3.5-5.5); Sodium, Blood 139 mmol/L (136-145)
[2024-10-03 07:25] VITALS: BP 128/57
[2024-10-03] MEDS ORDERED: Potassium Chloride 20 MEQ TabCR PO ONE (07:30)
[2024-10-03] MEDS ORDERED: Potassium Chloride 10 Meq Tablet SA PO ONE (10:50)
[2024-10-03] MEDS ORDERED: NS 250 ML IV PRN (11:10)
[2024-10-03 14:02] LABS: HBV CORE ANTIBODIES,TOTAL Negative (Negative)
[2024-10-03 15:21] VITALS: BP 131/58
--- NOTE | 2024-10-03 18:33 | NUR ---
SHIFT SUMMARY PT A&OX4. PT ADMITTED DUE TO ACUTE RENAL FAILURE. PT LEFT UROSTOMY WITH CLEAR PINK TINGED URINE. FREE FLOWING, AND DRAINING WITH NO DEPENDENT LOOPS OR KINKS. HD CATH CAPPED. 24 HOUR URINE SAMPLE IN PROCESS. TELE D/C'D. PT DID NOT HAVE DIALYSIS TODAY. VSS. PT REPORTS NO CHEST DISCOMFORT/PAIN. PLAN IS AWAITING DIALYSIS CHAIR OUTPATIENT. PT ON ROOM AIR. NO COVERAGE NEEDED FOR CBG, NOTIFIED DR. MERA ABOUT THERE NOT BEING INSULIN ORDERED. "HE REPORTED WILL ORDER INSULIN FOR COVERAGE." BED IN LOWEST POSITION, CALL LIGHT IN REACH. PT COMPLAINT OF LOWER L ARM TENDERNESS, REPORTED "HAVING A IV DOWN THERE YEST." REPORTED CONCERN TO NIGHT NURSE.
[2024-10-03 20:43] VITALS: BP 115/70
[2024-10-04 05:11] VITALS: BP 104/63
--- NOTE | 2024-10-04 05:11 | NUR ---
SHIFT SUMMARY PT ALERT AND ORIENTED TIMES 4. PT ADMITTED FOR RESPIRATORY FAILURE. PT HAS 24 HOUR URINE SCHEDULED TO END THIS AM. PT IS ABLE TO AMBULATE TO TOILET WITH ONE ASSIST. PT IS RECEPTIVE TO CARE. PT APPEARS TO HAVE SLEPT ON AND OFF THROUGH THE NIGHT. PT IS ON TELE AND HAS STRICT I/O S. FLUID RESPRICTION OF 1800MLS. PT S BED IN LOW POSITION, CALL LIGHT WITHIN REACH, RAILS TIMES 2.
[2024-10-04 08:25] VITALS: BP 115/73
[2024-10-04 10:27] VITALS: BP 122/77
[2024-10-04 11:08] LABS: Hematocrit 28.3 % (37.0-53.0)
[2024-10-04 11:39] LABS: Albumin, Blood 2.2 g/dL (3.4-5.0); Anion Gap 14 mmol/L (3-11); Blood Urea Nitrogen 61 mg/dL (8-24); Bun/Creatinine Ratio 7.7 (12.0-20.0); CO2, Blood 25 mmol/L (21-32); Calcium, Blood 8.1 mg/dL (8.5-10.1); Chloride, Blood 101 mmol/L (98-108); Creatinine, Blood 7.94 mg/dL (0.60-1.20); Glomerular Filtration Rate 7 (60-); Glucose, Blood 167 mg/dL (70-99); Magnesium, Blood 2.4 mg/dL (1.6-2.4); Phosphorus, Blood 5.6 mg/dL (2.5-4.9); Potassium, Blood 3.7 mmol/L (3.5-5.5); Sodium, Blood 136 mmol/L (136-145)
[2024-10-04] MEDS ORDERED: Aspir 8181 MG PO (12:05)
[2024-10-04] MEDS ORDERED: LANS15EC PO (12:06)
[2024-10-04] MEDS ORDERED: CLOP75 PO (12:57)
[2024-10-04] MEDS ORDERED: Nicotine Gum4 MG BC (13:00)
[2024-10-04] MEDS ORDERED: VANCOCIN HCL125 MG PO (13:01)
[2024-10-04] MEDS ORDERED: VISBIOME 112.51 EACH PO (13:04)
--- NOTE | 2024-10-04 13:27 | NUR ---
DISCHARGE NOTE PT A&OX4. PT ADMITTED DUE TO ACUTE RENAL FAILURE. PT REPORTS NO PAIN. VSS. 24 HOUR URINE WAS COMPLETED TODAY. PT HAS R UPPER CHEST HD CATH, C/D/I. LABS DRAWN BY POWERGLIDE THIS AM. PT HAS NEPHROSTOMY WHICH IS DRAINING FREELY WITH NO KINKS. PT STILL REPORTS LOOSE STOOL. ANTIBIOTIC AND IRON INFUSION GIVEN TODAY. PT INDEPENDENT IN ROOM. PT EDUCATED ON DISCHARGE AND MEDS. PT REPORTS "LEFT VOICEMAIL FOR APPOINTMENT WITH [facility], PT REPORTS WILL GO TO [facility] TODAY AT 3PM AND GO TO DIALYSIS THIS WEEK. APPOINTMENT IS SET WITH PCP." MEDS FAXED TO [facility]. PT POWERGLIDE REMOVED. AT BEDSIDE DURING SHIFT. PT WENT WITH BELONGINGS.
[2024-10-06 21:08] LABS: GBM, IGG MULTIPLEX BEAD ASSAY 0 AU/mL (0-19); MYELOPEROXIDASE (MPO) AB,IGG 0 AU/mL (0-19); SERINE PROTEINASE 3 PR3 AB,IGG 0 AU/mL (0-19)
== END 2024-10-04 13:27 | disposition home or self-care (01) | DRG 674 ==
LOC: ER 17:11 → ERHOLD 21:59 → MEDS 21:59 → PCU 21:59 → MEDS 10-03 04:15 → ENPENDDIS 10-04 11:07 → MEDS 10-04 13:27
PROVIDERS: Hospitalist; Internal Medicine; Internal Medicine Nephrology; Student in an Organized Health Care Education/Training Program; ADMIT Internal Medicine
PROC: 5A1D70Z Performance of Urinary Filtration, Intermittent, Less than 6 Hours Per Day (ICD-10-PCS; principal; 2024-09-26)
PROC: 0T9430Z Drainage of Left Kidney Pelvis with Drainage Device, Percutaneous Approach (ICD-10-PCS; 2024-09-27)
PROC: 0JH63XZ Insertion of Tunneled Vascular Access Device into Chest Subcutaneous Tissue and Fascia, Percutaneous Approach (ICD-10-PCS; 2024-10-01)
PROC: 02HV33Z Insertion of Infusion Device into Superior Vena Cava, Percutaneous Approach (ICD-10-PCS; 2024-10-01)
DX: N17.0 Acute kidney failure with tubular necrosis (principal); A04.72 Enterocolitis due to Clostridium difficile, not specified as recurrent; I50.22 Chronic systolic (congestive) heart failure; G93.49 Other encephalopathy; N13.8 Other obstructive and reflux uropathy; E87.20 Acidosis, unspecified; N13.6 Pyonephrosis; D63.1 Anemia in chronic kidney disease; J44.9 Chronic obstructive pulmonary disease, unspecified; E87.5 Hyperkalemia; N18.6 End stage renal disease; E88.09 Other disorders of plasma-protein metabolism, not elsewhere classified; E83.51 Hypocalcemia; E87.6 Hypokalemia; N28.89 Other specified disorders of kidney and ureter; N20.0 Calculus of kidney; R94.31 Abnormal electrocardiogram [ECG] [EKG]; I95.9 Hypotension, unspecified; Z88.8 Allergy status to other drugs, medicaments and biological substances; Z79.02 Long term (current) use of antithrombotics/antiplatelets; Z79.84 Long term (current) use of oral hypoglycemic drugs; Z79.899 Other long term (current) drug therapy; N40.1 Benign prostatic hyperplasia with lower urinary tract symptoms; E86.0 Dehydration; F17.210 Nicotine dependence, cigarettes, uncomplicated; J43.9 Emphysema, unspecified; Z87.442 Personal history of urinary calculi
CPT/HCPCS: 36415; 36556; 51701; 51798; 71045; 71046; 74176; 76937; 80047; 80048; 80053; 80069; 80074; 82270; 82728; 82803; 82947; 83516; 83540; 83550; 83690; 83735; 83880; 84156; 85014; 85018; 85025; 86334; 86704; 86850; 86900; 86901; 86923; 87070; 87075; 87077; 87186; 87205; 87324; 87428-QW; 87507; 93005; 93010; 94644; 94664; 94760; 96361; 96374; 96375; 99152; 99153; 99285-25; A9270; C1729; C1750; C1752; C1769; C1894; C8929; J0612; J0690; J0696; J0881; J1644; J1815; J2185; J2250; J2405; J2916; J3010; J3480; J7030; J7050; J7070; J7120; J7799; P9016; P9047; Q9957; Q9967

== ENCOUNTER 2024-10-14 19:16 | Emergency (ER) | payer OTHER ==
[~2024-10-14] VITALS: Ht 180.3 cm; Wt 81.7 kg
[~2024-10-14 19:16] MED LIST: ALBU2.5V5; ATOR80 PO; Aspir 8181 MG PO; CLOP75 PO; Cefadroxil500 MG; FINA5 PO; LANS15EC PO; Lisinopril2.5 MG; METF500 PO; METO25ER PO; NITR.4SL SL; Nicotine Gum4 MG BC; TAMS.4ER PO; VANCOCIN HCL125 MG PO; VISBIOME 112.51 EACH PO
== END 2024-10-14 20:55 | disposition home or self-care (01) ==
LOC: ER 19:16
DX: Z43.6 Encounter for attention to other artificial openings of urinary tract (principal); J44.9 Chronic obstructive pulmonary disease, unspecified; E11.9 Type 2 diabetes mellitus without complications; Z79.899 Other long term (current) drug therapy; Z88.8 Allergy status to other drugs, medicaments and biological substances
CPT/HCPCS: 99282

== ENCOUNTER → 2024-10-15 | Outpatient (CLI) | payer MEDICARE ==
[2024-10-15 11:29] LABS: BASOPHILS ABSOLUTE AUTO 0.09 K/mm3 (0.00-0.23); BASOPHILS PERCENT AUTO 2 % (0-2); EOSINOPHILS ABSOLUTE AUTO 0.14 K/mm3 (0.00-0.68); EOSINOPHILS PERCENT AUTO 2 % (0-6); Hematocrit 32.4 % (37.0-53.0); Hemoglobin 9.5 g/dL (13.5-17.5); IMMATURE GRAN ABSOLUTE AUTO 0.01 K/mm3 (0.00-0.10); IMMATURE GRAN PERCENT AUTO 0 % (0-1); LYMPHOCYTES ABSOLUTE AUTO 0.95 K/mm3 (0.84-5.20); LYMPHOCYTES PERCENT AUTO 17 % (21-46); MONOCYTES ABSOLUTE AUTO 0.64 K/mm3 (0.16-1.47); MONOCYTES PERCENT AUTO 11 % (4-13); Mean Corpuscular HGB 24.2 pg (26.0-34.0); Mean Corpuscular HGB Conc 29.3 g/dL (31.5-36.5); Mean Corpuscular Volume 82 fL (80-100); Mean Platelet Volume 10.4 fL (9.1-12.4); NEUTROPHILS ABSOLUTE AUTO 3.92 K/mm3 (1.96-9.15); NEUTROPHILS PERCENT AUTO 68 % (41-73); Platelet Count 418 K/mm3 (150-400); RDW Coefficient Variation 23.7 % (11.7-14.2); Red Blood Cell Count 3.93 M/mm3 (4.30-5.90); White Blood Cell Count 5.75 K/mm3 (4.00-11.30)
== END | disposition home or self-care (01) ==
LOC: LAB 10:25 → LAB SHORT 10:25
PROVIDERS: Internal Medicine Hematology & Oncology
DX: D47.2 Monoclonal gammopathy (principal)
CPT/HCPCS: 85025

== ENCOUNTER 2024-11-07 12:40 | Emergency (ER) | payer MEDICARE ==
[~2024-11-07] VITALS: Ht 177.8 cm; Wt 63.5 kg
[2024-11-07 13:48] LABS: Source, Urine Clean Catch
[2024-11-07 13:58] LABS: Appearance, Urine Turbid (Clear); Bilirubin, Urine Neg (Neg); Blood, Urine 5+ (Neg); Glucose Qualitative, Urine 4+ (Neg); Ketones, Urine Neg (Neg); Leukocyte Esterase, Urine 3+ (Neg); Nitrite, Urine Pos (Neg); Protein, Urine 4+ (Neg); Urobilinogen, Urine NORM (Normal)
[2024-11-07 14:09] LABS: Color, Urine Amber (P-Yellow)
[2024-11-07 14:10] LABS: Bacteria Many /hpf; Red Blood Cells, Urine TNTC /hpf (0-2); Squamous Epithelial Cells Rare /hpf (Few); Transitional Epithelial Cells Few /hpf (0-Rare); White Blood Cells, Urine TNTC /hpf (0-5)
[2024-11-07 14:31] LABS: BASOPHILS ABSOLUTE AUTO 0.08 K/mm3 (0.00-0.23); BASOPHILS PERCENT AUTO 1 % (0-2); EOSINOPHILS ABSOLUTE AUTO 0.17 K/mm3 (0.00-0.68); EOSINOPHILS PERCENT AUTO 1 % (0-6); Hematocrit 37.7 % (37.0-53.0); Hemoglobin 11.7 g/dL (13.5-17.5); IMMATURE GRAN ABSOLUTE AUTO 0.12 K/mm3 (0.00-0.10); IMMATURE GRAN PERCENT AUTO 1 % (0-1); LYMPHOCYTES ABSOLUTE AUTO 1.41 K/mm3 (0.84-5.20); LYMPHOCYTES PERCENT AUTO 11 % (21-46); MONOCYTES ABSOLUTE AUTO 0.86 K/mm3 (0.16-1.47); MONOCYTES PERCENT AUTO 7 % (4-13); Mean Corpuscular HGB 25.4 pg (26.0-34.0); Mean Corpuscular Volume 82 fL (80-100); NEUTROPHILS ABSOLUTE AUTO 10.07 K/mm3 (1.96-9.15); NEUTROPHILS PERCENT AUTO 79 % (41-73); RDW Coefficient Variation 22.7 % (11.7-14.2); RDW Standard Deviation 66.7 fL (35.1-46.3); White Blood Cell Count 12.71 K/mm3 (4.00-11.30)
[2024-11-07 14:49] LABS: Mean Platelet Volume 9.6 fL (9.1-12.4); Platelet Count 397 K/mm3 (150-400)
[2024-11-07 14:54] LABS: Albumin, Blood 3.2 g/dL (3.4-5.0); Albumin/Globulin Ratio 0.8 (0.8-1.8); Bilirubin, Total 0.8 mg/dL (0.1-1.0); Bun/Creatinine Ratio 17.5 (12.0-20.0); Calcium, Blood 9.2 mg/dL (8.5-10.1); Creatinine, Blood 1.77 mg/dL (0.60-1.20); Globulin, Blood 4.2 g/dL (2.2-4.0); Potassium, Blood 3.6 mmol/L (3.5-5.5); Total Protein, Blood 7.4 g/dL (6.4-8.2)
[2024-11-07] MEDS ORDERED: Ciprofloxacin 500 MG Tab PO ONE (17:25)
[2024-11-07] MEDS ORDERED: CIPR250 PO (17:28)
[2024-11-12] MEDS ORDERED: AMOCLA875 PO (10:48)
== END 2024-11-07 18:04 | disposition home or self-care (01) ==
LOC: ER 12:40
PROVIDERS: Student in an Organized Health Care Education/Training Program
DX: N20.0 Calculus of kidney (principal); N39.0 Urinary tract infection, site not specified; Z93.6 Other artificial openings of urinary tract status; E11.9 Type 2 diabetes mellitus without complications; I50.9 Heart failure, unspecified; Z88.8 Allergy status to other drugs, medicaments and biological substances; Z79.818 Long term (current) use of other agents affecting estrogen receptors and estrogen levels; Z79.899 Other long term (current) drug therapy; Z79.2 Long term (current) use of antibiotics
CPT/HCPCS: 51702; 74176; 80053; 81001; 83690; 85025; 87077; 87086; 87186; 99284-25; A9270

== ENCOUNTER → 2024-11-22 | Outpatient (CLI) | payer SELFPAY ==
[~2024-11-22] MED LIST changes: +AMOCLA875 PO; +CIPR250 PO
[2024-11-22 12:37] LABS: Creatinine Urine 34.1 mg/dL (27.00-270.00); Microalbumin, Urine Quant. 62.1 mg/L (0.000-20.000)
[2024-11-22 12:38] LABS: Protein, Urine Quantitative 25.8 mg/dL (0.0-11.9)
== END | disposition home or self-care (01) ==
LOC: LAB 10:42 → LAB SHORT 10:42
PROVIDERS: Internal Medicine Nephrology
DX: N18.30 Chronic kidney disease, stage 3 unspecified (principal); D63.1 Anemia in chronic kidney disease; E29.1 Testicular hypofunction; N25.81 Secondary hyperparathyroidism of renal origin; E55.9 Vitamin D deficiency, unspecified; E78.00 Pure hypercholesterolemia, unspecified; G60.9 Hereditary and idiopathic neuropathy, unspecified; D51.8 Other vitamin B12 deficiency anemias; D52.8 Other folate deficiency anemias; D50.9 Iron deficiency anemia, unspecified; R76.9 Abnormal immunological finding in serum, unspecified; R94.5 Abnormal results of liver function studies; R94.6 Abnormal results of thyroid function studies
CPT/HCPCS: 81050; 82043; 82570; 84156

== ENCOUNTER → 2025-04-15 | Outpatient (CLI) | payer OTHER ==
[2025-04-15 11:24] LABS: Bilirubin, Urine Neg (Neg); Glucose Qualitative, Urine 4+ (Neg); Ketones, Urine Neg (Neg); Leukocyte Esterase, Urine 3+ (Neg); Protein, Urine 1+ (Neg); Specific Gravity, Urine 1.015 (1.003-1.022); Urobilinogen, Urine NORM (Normal)
[2025-04-15 11:48] LABS: Color, Urine Pale Yellow (P-Yellow)
[2025-04-15 11:53] LABS: White Blood Cells, Urine TNTC /hpf (0-5)
== END ==
LOC: LAB 09:19 → LAB SHORT 09:19
PROVIDERS: Urology
DX: N39.0 Urinary tract infection, site not specified (principal)
CPT/HCPCS: 81001; 87077; 87086; 87186

== ENCOUNTER → 2025-04-16 | Outpatient (CLI) | payer OTHER ==
[2025-04-22 17:55] LABS: CALCIUM, URINE - PER 24H 156 mg/d (100-250); CALCIUM, URINE - PER VOLUME 12.0 mg/dL; CHLORIDE, URINE - PER 24H 87 mmol/d (140-250); CHLORIDE, URINE - PER VOLUME 67 mmol/L; CITRIC ACID, URINE - PER 24H 127 mg/d (320-1240); CITRIC ACID,URINE - PER VOLUME 98 mg/L; CREATININE, URINE - PER 24H 754 mg/d (800-2100); CREATININE, URINE - PER VOLUME 58 mg/dL; HOURS COLLECTED 24 hr; MAGNESIUM, URINE - PER VOLUME 5.2 mg/dL; MAGNESIUM, URINE PER 24H 68 mg/d (12-199); OXALATE, URINE - PER 24H 20 mg/d (16-49); OXALATE, URINE - PER VOLUME 15 mg/L; PHOSPHORUS, URINE - PER 24H 520 mg/d (400-1300); PHOSPHORUS, URINE - PER VOLUME 40 mg/dL; POTASSIUM, URINE - PER 24H 31 mmol/d (25-125); POTASSIUM, URINE - PER VOLUME 24 mmol/L; SODIUM, URINE - PER 24H 91 mmol/d (51-286); SODIUM, URINE - PER VOLUME 70 mmol/L; SULFATE, URINE - PER 24H 9 mmol/d (6-30); SULFATE, URINE - PER VOLUME 7 mmol/L; URIC ACID, URINE - PER 24H 309 mg/d (250-750); URIC ACID, URINE - PER VOLUME 23.8 mg/dL; URINE SUPERSATURATION INTERP Abnormal; URINE SUPERSATURATION, CAHPO4 0.43; URINE SUPERSATURATION, CAOX 6.33; URINE SUPERSATURATION, UA CALC 1.20
== END | disposition home or self-care (01) ==
LOC: LAB 11:37 → LAB SHORT 11:37 → LAB FUT 02-18 09:20
PROVIDERS: Urology
DX: N20.2 Calculus of kidney with calculus of ureter (principal)
CPT/HCPCS: 81003; 81050; 82131; 82140; 82340; 82436; 82507; 82570; 83735; 83935; 83945; 84105; 84133; 84300; 84392; 84560

== ENCOUNTER 2025-06-21 12:32 | Emergency (ER) | payer OTHER ==
[~2025-06-21] VITALS: Ht 177.8 cm; Wt 75.8 kg
[2025-06-21 13:09] LABS: BASOPHILS ABSOLUTE AUTO 0.05 K/mm3 (0.00-0.23); BASOPHILS PERCENT AUTO 0 % (0-2); EOSINOPHILS ABSOLUTE AUTO 0.03 K/mm3 (0.00-0.68); EOSINOPHILS PERCENT AUTO 0 % (0-6); Hematocrit 42.4 % (37.0-53.0); Hemoglobin 13.3 g/dL (13.5-17.5); IMMATURE GRAN ABSOLUTE AUTO 0.06 K/mm3 (0.00-0.10); IMMATURE GRAN PERCENT AUTO 1 % (0-1); LYMPHOCYTES ABSOLUTE AUTO 1.13 K/mm3 (0.84-5.20); LYMPHOCYTES PERCENT AUTO 10 % (21-46); MONOCYTES ABSOLUTE AUTO 1.01 K/mm3 (0.16-1.47); MONOCYTES PERCENT AUTO 9 % (4-13); Mean Corpuscular HGB Conc 31.4 g/dL (31.5-36.5); Mean Corpuscular Volume 88 fL (80-100); NEUTROPHILS ABSOLUTE AUTO 9.50 K/mm3 (1.96-9.15); NEUTROPHILS PERCENT AUTO 81 % (41-73); NRBC ABSOLUTE 0.00 K/mm3 (0.00-0.02); NRBC Auto 0.0 /100 WBC (0.0-0.2); Platelet Count 384 K/mm3 (150-400); RDW Coefficient Variation 15.0 % (11.7-14.2); RDW Standard Deviation 48.7 fL (35.1-46.3)
[2025-06-21 13:31] LABS: Alanine Aminotransfer (ALT/SGP 19.0 U/L (12-78); Albumin, Blood 3.4 g/dL (3.4-5.0); Albumin/Globulin Ratio 0.9 (0.8-1.8); Anion Gap 9.0 mmol/L (3-11); Aspartate Aminotrans (AST/SGOT 10.0 U/L (12-37); Bilirubin, Total 0.7 mg/dL (0.1-1.0); Blood Urea Nitrogen 32.0 mg/dL (8-24); CO2, Blood 26.0 mmol/L (21-32); Calcium, Blood 10.6 mg/dL (8.5-10.1); Chloride, Blood 108.0 mmol/L (98-108); Creatinine, Blood 0.83 mg/dL (0.60-1.20); Globulin, Blood 3.9 g/dL (2.2-4.0); Glucose, Blood 229.0 mg/dL (70-99); Potassium, Blood 4.1 mmol/L (3.5-5.5); Sodium, Blood 139.0 mmol/L (136-145); Total Protein, Blood 7.3 g/dL (6.4-8.2)
[2025-06-21 14:21] LABS: Source, Urine Clean Catch
[2025-06-21 14:30] LABS: Bilirubin, Urine Neg (Neg); Glucose Qualitative, Urine 4+ (Neg); Ketones, Urine Neg (Neg); Leukocyte Esterase, Urine 3+ (Neg); Protein, Urine 1+ (Neg); Specific Gravity, Urine 1.025 (1.003-1.022); Urobilinogen, Urine NORM (Normal)
[2025-06-21 14:55] LABS: Color, Urine Yellow (P-Yellow)
[2025-06-21 14:56] LABS: White Blood Cells, Urine 25-50 /hpf (0-5)
[2025-06-21] MEDS ORDERED: CefTRIAXone Sodium 1,000 MG in NS 100 ML IV ONE (15:35)
[2025-06-21] MEDS ORDERED: Furosemide 10 MG / ML 2ML Vial IV ONE (15:40)
[2025-06-21] MEDS ORDERED: HYDROcodone 5-APAP 325 TAB PO ONE (15:50)
== END 2025-06-21 17:21 | disposition home or self-care (01) ==
LOC: ER 12:32
PROVIDERS: Physician Assistant
DX: I50.9 Heart failure, unspecified (principal); N39.0 Urinary tract infection, site not specified; E11.9 Type 2 diabetes mellitus without complications; F17.200 Nicotine dependence, unspecified, uncomplicated; Z79.899 Other long term (current) drug therapy; Z79.2 Long term (current) use of antibiotics
CPT/HCPCS: 71046; 80053; 81001; 83880; 84484; 85025; 87077; 87086; 87186; 93005; 93010; 96365; 96375; 99284-25; A9270; J0696; J1938

== ENCOUNTER 2025-07-03 08:31 | Emergency (ER) | payer OTHER | END 2025-07-03 19:05 | disposition home or self-care (01) | LOC: ER 08:31 | DX: C40.22 Malignant neoplasm of long bones of left lower limb (principal); I50.9 Heart failure, unspecified; J44.9 Chronic obstructive pulmonary disease, unspecified; E11.9 Type 2 diabetes mellitus without complications; Z87.442 Personal history of urinary calculi; Z79.899 Other long term (current) drug therapy ==